=== PATIENT | female | born 2000 | race Hispanic/Latino ===

== ENCOUNTER 2021-08-02 12:35 | Outpatient (CLI) | payer MEDICAID ==
[2021-08-02 13:43] LABS: Hematocrit 37.9 % (30.3-42.9); Hemoglobin 13.5 gm/dl (10.1-14.3); Mean Corpuscular HGB Conc 36 % (30-34); Mean Corpuscular Volume 94 fl (79-97); Red Blood Count 4.06 M/mm3 (3.65-5.03)
[2021-08-02 13:44] LABS: Platelet Count 116 K/mm3 (140-440); Red Cell Distribution Width 13.9 % (13.2-15.2)
[2021-08-02 13:57] LABS: Bacteria,Urine 4+ /HPF (Negative); Bilirubin,Urine NEG (Negative); Blood,Urine LG (Negative); Color,Urine Yellow (Yellow); Mucus,Urine FEW /HPF; Protein,Urine <15 mg/dL mg/dL (Negative); Urobilinogen,Urine < 2.0 mg/dL (<2.0)
[2021-08-02 14:00] LABS: Alanine Aminotransferase 18 units/L (7-56)
[2021-08-02 14:17] VITALS: BP 126/74
[2021-08-02 23:09] LABS: Uric Acid 5.5 mg/dL (3.5-7.6)
== END 2021-08-02 14:45 | disposition home or self-care (01) ==
LOC: TRG 12:35 → APU 12:36 → TRG 14:45
PROVIDERS: ATTEND Obstetrics & Gynecology
DX: O13.3 Gestational [pregnancy-induced] hypertension without significant proteinuria, third trimester (principal); Z3A.40 40 weeks gestation of pregnancy
CPT/HCPCS: 36415; 59025; 81001; 82565; 83615; 84450; 84460; 84550; 85027; 87086

== ENCOUNTER 2021-08-06 20:33 | Inpatient (IN) | payer MEDICAID ==
[2021-08-06] MEDS ORDERED: NalbUPHINE 10 MG/1 ML INJ IV PRN (21:19)
[2021-08-06] MEDS ORDERED: MINERAL OIL 30 ML ORAL LIQD PO PRN (21:19)
[2021-08-06] MEDS ORDERED: BUTORPHANOL 2 MG/1 ML INJ IV PRN (21:19)
[2021-08-06] MEDS ORDERED: ACETAMINOPHEN 325 MG TAB PO PRN (21:19)
[2021-08-06] MEDS ORDERED: TERBUTALINE 1 MG/1 ML INJ SUB-Q PRN (21:19)
[2021-08-06 22:48] LABS: Mean Corpuscular HGB Conc 34 % (30-34); Mean Corpuscular Volume 94 fl (79-97); Platelet Count 104 K/mm3 (140-440); Red Blood Count 4.03 M/mm3 (3.65-5.03); Red Cell Distribution Width 14.4 % (13.2-15.2)
[2021-08-06] MEDS: LACTATED RINGERS 1,000 ML IV SCH (23:01)
[2021-08-06] MEDS: miSOPROStol 25 MCG TAB VG SCH (23:15)
[2021-08-07] MEDS: LACTATED RINGERS 1,000 ML IV SCH (00:30)
[2021-08-07] MEDS: miSOPROStol 25 MCG TAB VG SCH (03:18)
[2021-08-07] MEDS ORDERED: ONDANSETRON 4 MG/2 ML INJ ONE (07:06)
--- NOTE | 2021-08-07 09:24 | Anesthesia Consultation ---
Anesthesia Consult and Med Hx Date of service: 08/07/21 - Airway Anesthetic Teeth Evaluation: Poor ROM Head & Neck: Adequate Mental/Hyoid Distance: Adequate Mallampati Class: Class II Intubation Access Assessment: Probably Good - Pulmonary Exam CTA: Yes - Cardiac Exam Cardiac Exam: RRR - Pre-Operative Health Status ASA Pre-Surgery Classification: ASA2 Proposed Anesthetic Plan: Epidural - Pulmonary Hx Smoking: No Hx Asthma: Yes (as a baby) COPD: No Hx Pneumonia: No - Cardiovascular System Hx Hypertension: No - Central Nervous System Hx Neuromuscular Disorder: Yes (scoleosis) Hx Seizures: No Hx Psychiatric Problems: No - Endocrine Hx Renal Disease: No Hx End Stage Renal Disease: No Hx Hypothyroidism: No Hx Hyperthyroidism: No - Hematic Hx Anemia: No Hx Sickle Cell Disease: No - Other Systems Hx Alcohol Use: No Hx Obesity: Yes
[2021-08-07] MEDS ORDERED: fentaNYL-BUPIV 2 MCG/ML-0.125% 200 MCG/100 ML BAG EPIDURAL SCH (10:00)
[2021-08-07] MEDS ORDERED: NALOXONE 2 MG/2 ML INJ IV PRN (10:00)
[2021-08-07] MEDS ORDERED: ePHEDrine SULFATE 50 MG/1 ML INJ IV PRN (10:00)
--- NOTE | 2021-08-07 10:00 | Progress Note ---
Labor Epidural - Labor Epidural Start Time: 09:45 Stop Time: 09:49 Performed by:: HI DON Procedure: Patient is requesting epidural for labor pain. H&P and labs reviewed. Procedure explained, questions answered, consent obtained. Patient placed in sitting position with monitors applied. Timeout performed immediately before start of procedure. Prep/drape in usual sterile fashion. Skin localized 3 mL 1% lidocaine at L[3]-L[4] interspace. 17-gauge Touhy epidural needle advanced to RAHUL with saline at [8] cm x1 attempt. No blood/CSF noted via epidural needle. Epidural catheter advanced to [12] cm. Negative aspiration for blood and CSF via catheter, negative response to test dose 3 ml 1.5% lidocaine w/ Epi. Sterile dressing applied followed by tape reinforcement. Patient tolerated procedure well. No immediate complications noted.
[2021-08-07] MEDS ORDERED: FLU VACC QUAD 2021-22(6MOS UP)/PF 60 MCG/0.5 ML SYRINGE IM ONE (12:00)
--- NOTE | 2021-08-07 13:27 | History and Physical Report ---
History of Present Illness Date of examination: 08/06/21 Date of admission: 08/06/21 20:33 Chief complaint: I'm here for my induction History of present illness: Patient is 20-year-old 2 para 0 who presents for induction of labor secondary to postdates with an EDC of 08/02/2021 all of her labs have been negative and she is GBS negative as well. She transferred to just few months of care at 15 weeks gestation from women's health specialist. Her course has been otherwise uncomplicated Past History Past Medical History: no pertinent history Past Surgical History: no surgical history Family/Genetic History: none Social history: single - Obstetrical History Expected Date of Delivery: 08/02/21 Actual Gestation: 40 Week(s) 5 Day(s) : 3 Number of Living Children: 0 Medications and Allergies Allergies Allergy/AdvReac Type Severity Reaction Status Date / Time No Known Allergies Allergy Unverified 08/02/21 12:51 Home Medications Medication Instructions Recorded Confirmed Last Taken Type No Known Home Medications [No 08/06/21 08/06/21 Unknown History Reported Home Medications] Active Meds: Active Medications Acetaminophen (Acetaminophen 325 Mg Tab) 650 mg PO Q4H PRN PRN Reason: Pain, Mild (1-3) Butorphanol Tartrate (Butorphanol 2 Mg/1 Ml Inj) 1 mg IV Q2H PRN PRN Reason: Pain, Moderate(4-6) LABOR PAIN Last Admin: 08/07/21 06:48 Dose: 1 mg Ephedrine Sulfate (Ephedrine Sulfate 50 Mg/1 Ml Inj) 10 mg IV Q2M PRN PRN Reason: Hypotension Lactated Ringer's (Lactated Ringers) 1,000 mls @ 125 mls/hr IV DIRECT LUBA Last Admin: 08/07/21 00:30 Dose: 125 mls/hr Fentanyl/Bupivacaine/Sodium Chlor (Fentanyl-Bupiv 2 Mcg/Ml-0.125%) 200 mcg in 100 mls @ 12 mls/hr EPIDURAL TITR LUBA; Protocol Last Admin: 08/07/21 10:15 Dose: 12 mls/hr Mineral Oil (Mineral Oil 30 Ml Oral Liqd) 30 ml PO QHS PRN PRN Reason: Constipation Misoprostol (Misoprostol 25 Mcg Tab) 25 mcg VG Q4H LUBA Last Admin: 03/21/22 03:18 Dose: 25 mcg Nalbuphine HCl (Nalbuphine 10 Mg/1 Ml Inj) 10 mg IV Q2H PRN PRN Reason: Pain, Moderate (4-6) Naloxone HCl (Naloxone 2 Mg/2 Ml Inj) 0.2 mg IV Q5M PRN PRN Reason: Respiratory sedation Terbutaline Sulfate (Terbutaline 1 Mg/1 Ml Inj) 0.25 mg SUB-Q ONCE PRN PRN Reason: Hyperstimulation/Hypertonicity Review of Systems All systems: negative Genitourinary: pelvic pain - Vital Signs Vital signs: Vital Signs Pulse Pulse Ox 95 H 98 08/06/21 21:04 08/06/21 21:04 Temp Pulse Resp BP Pulse Ox 99.0 F 82 128/64 99 08/07/21 06:51 08/07/21 13:23 08/07/21 13:23 08/07/21 13:22 - Physical Exam Breasts: Positive: deferred Cardiovascular: Regular rate, Normal S1, Normal S2 Lungs: Positive: Clear to auscultation, Normal air movement Abdomen: Positive: normal appearance, soft, normal bowel sounds. Negative: distention, tenderness Genitourinary (Female): Positive: normal external genitalia, normal perenium Vulva: both: normal Vagina: Positive: normal moisture. Negative: discharge Cervix: Negative: lesion, discharge Uterus: Positive: normal size, normal contour Adnexa: both: normal Anus/Rectum: Positive: normal perianal skin, heme negative. Negative: rectal mass, hemorrhoids Extremities: Deep Tendon Reflex Grade: Normal +2 - Obstetrical FHR: auscultation normal Cervical Dilatation: 0.5 Cervical Effacement Percentage: 50 station: -3 Uterine Contraction Pattern: Absent Results Result Diagrams: 08/06/21 22:30 Abnormal lab results 08/06/21 Range/Units 22:30 Plt Count 104 L (140-440) K/mm3 All other labs normal. Assessment and Plan IUP at 40 weeks and 4 days here for postdates induction of labor. We will begin with Cytotec this evening. Patient may have epidural when ready. Anticipate .
--- NOTE | 2021-08-07 13:30 | Procedure Note ---
OB Delivery Note - Delivery Date of Delivery: 08/07/21 Surgeon: SULTANA ROSE - Vaginal Delivery presentation: vertex Delivery position: OA Intrapartum events: meconium (light) Delivery induction: misoprostol Delivery monitor: external FHT, external uterine Route of delivery: Indicators for instrumentation: nonreassuring FHR tracing Delivery placenta: spontaneous Delivery cord: 3 umbilical vessels Episiotomy: none Delivery laceration: 2nd degree Delivery repair: vicryl Anesthesia: epidural Delivery comments: Viable male delivered over intact perineum at 1300 p.m. had no evidence of nuchal cord. had spontaneous cry and was placed on maternal abdomen. Cord was clamped and cut when finished pulsating. Weight 8 pounds 2 ounces. Apgars 8/9. Placenta was delivered spontaneously and intact with three-vessel cord. Patient had a second-degree laceration that was repaired with 2-0 Vicryl. Excellent hemostasis. Patient tolerated procedure well. - Infant A at 1 minute: 8 at 5 minutes: 9 Gender: Male (8 pounds 2 ounces)
[2021-08-07] MEDS ORDERED: ONDANSETRON 4 MG/2 ML INJ IV PRN (16:28)
[2021-08-07] MEDS ORDERED: LANOLIN/ZINC/DIMETHICONE (LANSINOH) 7 GM TP PRN (16:28)
[2021-08-07] MEDS ORDERED: WITCH HAZEL/ GLYCERIN PAD TP PRN (16:28)
[2021-08-07] MEDS ORDERED: PROMETHAZINE 25 MG RECT SUPP PR PRN (16:28)
[2021-08-07] MEDS ORDERED: HYDROcodone/ACETAMINOPHEN 5-325 MG TAB PO PRN (16:28)
[2021-08-07] MEDS ORDERED: diphenhydrAMINE 25 MG CAP PO PRN (16:28)
[2021-08-07] MEDS ORDERED: PROMETHAZINE 25 MG TAB PO PRN (16:28)
[2021-08-07] MEDS: IBUPROFEN 800 MG TAB PO SCH ×2 (16:50→22:15)
[2021-08-07] MEDS ORDERED: MEASLES, MUMPS & RUBELLA 12,500 UNIT/0.5 ML VACCINE SUB-Q ONE (17:53)
--- NOTE | 2021-08-07 19:55 | Post Anesthesia Evaluation ---
- Post Anesthesia Evaluation Patient Participated: Yes Airway Patent: Yes Stable Respiratory Function: Yes Nausea/Vomiting: No Temp > 96.8F: Yes Pain Manageable: Yes Adequeate Hydration: Yes Anesthesia Complications: No Block Receding Appropriately: Yes Patient on Ventilator: No
[2021-08-07] MEDS: FERROUS SULFATE 325 MG TAB PO SCH (22:15)
[2021-08-08] MEDS: MAGNESIUM HYDROXIDE (MOM) ORAL LIQD UDC PO PRN ×2 (02:33→09:55)
[2021-08-08 05:19] LABS: Hematocrit 36.5 % (30.3-42.9); Hemoglobin 12.3 gm/dl (10.1-14.3)
[2021-08-08] MEDS: IBUPROFEN 800 MG TAB PO SCH ×2 (06:41→12:28)
[2021-08-08] MEDS: FERROUS SULFATE 325 MG TAB PO SCH (09:55)
[2021-08-08] MEDS ORDERED: PRENATAL VIT27-FE FUMARATE-FOLIC ACID VIT TAB PO SCH (10:00)
--- NOTE | 2021-08-08 12:48 | Discharge Summary ---
Providers - Providers Date of Admission: 08/06/21 20:33 Date of discharge: 08/08/21 Attending physician: SULTANA ROSE Primary care physician: SULTANA ROSE Hospitalization Reason for admission: induction of labor Delivery: Episiotomy: none Laceration: 2nd degree Other procedures: none complications: none Discharge diagnosis: IUP at term delivered baby: male Hospital course: unremarkable Condition at discharge: Good Disposition: 01 HOME / SELF CARE / HOMELESS Plan - Discharge Medications Prescriptions: Ibuprofen [Motrin] 800 mg PO Q8HR PRN #40 tablet PRN Reason: Pain, Mild (1-3) HYDROcodone/APAP 5-325 [[place] 5/325] 1 each PO Q6HR PRN #15 tablet PRN Reason: Pain - Provider Discharge Summary Activity: routine, no sex for 6 weeks, no heavy lifting 4 weeks, no strenuous exercise Diet: routine Instructions: routine Additional instructions: [] Smoking cessation referral if applicable(refer to patient education folder for contact #) [] Refer to [facility] Booklet Call your doctor immediately for: * Fever > 100.5 * Heavy vaginal bleeding ( >1 pad per hour) * Severe persistent headache * Shortness of breath * Reddened, hot, painful area to leg or breast * Drainage or odor from incision. * Keep incision clean and dry at all times and follow doctor's instructions regarding bathing/showering - Follow up plan Follow up: SULTANA ROSE MD [Primary Care Provider] - 6 Weeks
--- NOTE | 2021-08-08 12:50 | Progress Note ---
Assessment and Plan PPD 1 s/p . Doing well. Plan for discharge on today. Subjective - Subjective Date of service: 08/08/21 Interval history: Patient is 20-year-old 2 para 0 who presents for induction of labor secondary to postdates with an EDC of 08/02/2021 all of her labs have been negative and she is GBS negative as well. She transferred to just few months of care at 15 weeks gestation from women's health specialist. Her course has been otherwise uncomplicated Patient reports: appetite normal, voiding normally, pain well controlled, ambulating normally : doing well Objective - Vital Signs Latest vital signs: Vital Signs Temp Pulse Resp BP BP Pulse Ox Pulse Ox 08/08/21 08:00 98 08/08/21 07:40 98.3 F 80 20 134/84 98 08/08/21 06:41 18 08/08/21 00:10 97.8 F 87 18 119/61 97 08/07/21 23:15 18 08/07/21 22:15 18 08/07/21 20:32 98.1 F 99 H 20 137/87 98 08/07/21 20:30 99 08/07/21 16:21 99 08/07/21 16:19 98.4 F 88 18 126/79 99 08/07/21 15:38 96 H 141/78 08/07/21 15:37 98 H 99 08/07/21 15:32 96 H 100 08/07/21 15:27 104 H 98 08/07/21 15:23 88 137/91 08/07/21 15:22 91 H 99 08/07/21 15:17 107 H 99 08/07/21 15:15 96 H 88 08/07/21 15:12 91 H 99 08/07/21 15:08 94 H 131/78 08/07/21 15:07 90 100 08/07/21 15:02 103 H 98 08/07/21 15:01 79 88 08/07/21 14:57 92 H 99 08/07/21 14:53 82 132/74 08/07/21 14:52 89 98 08/07/21 14:47 86 100 08/07/21 14:45 88 94 08/07/21 14:42 107 H 100 08/07/21 14:38 83 127/61 08/07/21 14:37 84 99 08/07/21 14:32 66 99 08/07/21 14:27 85 100 08/07/21 14:23 77 127/60 08/07/21 14:22 65 100 08/07/21 14:17 75 99 08/07/21 14:12 94 H 94 08/07/21 14:08 96 H 137/82 08/07/21 14:07 98 H 99 08/07/21 14:02 94 H 99 08/07/21 13:57 82 99 08/07/21 13:53 86 142/78 08/07/21 13:52 94 H 100 08/07/21 13:47 79 100 08/07/21 13:42 83 99 08/07/21 13:38 76 138/69 08/07/21 13:37 85 98 08/07/21 13:32 90 97 08/07/21 13:27 86 97 08/07/21 13:23 82 128/64 08/07/21 13:22 84 99 08/07/21 13:17 91 H 99 08/07/21 13:12 97 H 97 08/07/21 13:08 83 132/68 08/07/21 13:07 84 100 08/07/21 13:02 109 H 100 08/07/21 12:57 104 H 100 08/07/21 12:53 72 139/73 08/07/21 12:52 146 H 100 Intake and Output 08/07/21 08/08/21 08/08/21 22:59 06:59 14:59 Intake Total 360 240 240 Output Total 900 Balance -540 240 240 Intake: Oral 120 240 240 Intake, Free Water 240 Output: Urine 900 Void 900 Other: Total, Intake Amount 120 120 240 Total, Output Amount 500 # Voids Void 1 05 20 - Exam Breasts: Present: deferred Cardiovascular: Present: Regular rate, Normal S1, Normal S2 Lungs: Present: Clear to auscultation, Normal air movement Abdomen: Present: normal appearance, soft Uterus: Present: normal, firm Extremities: Present: normal
[2021-08-08 13:28] VITALS: BP 120/70
== END 2021-08-08 15:30 | disposition home or self-care (01) | DRG 775 ==
LOC: LD 20:33 → OB 08-07 16:12
PROVIDERS: ADMIT Obstetrics & Gynecology; ATTEND Obstetrics & Gynecology
PROC: 10E0XZZ Delivery of Products of Conception, External Approach (ICD-10-PCS; principal; 2021-08-07)
PROC: 0KQM0ZZ Repair Perineum Muscle, Open Approach (ICD-10-PCS; 2021-08-07)
PROC: 3E0R3BZ Introduction of Anesthetic Agent into Spinal Canal, Percutaneous Approach (ICD-10-PCS; 2021-08-07)
PROC: 00HU33Z Insertion of Infusion Device into Spinal Canal, Percutaneous Approach (ICD-10-PCS; 2021-08-07)
PROC: 3E0P7VZ Introduction of Hormone into Female Reproductive, Via Natural or Artificial Opening (ICD-10-PCS; 2021-08-07)
PROC: 3E0234Z Introduction of Serum, Toxoid and Vaccine into Muscle, Percutaneous Approach (ICD-10-PCS; 2021-08-07)
DX: O77.0 Labor and delivery complicated by meconium in amniotic fluid (principal); O48.0 Post-term pregnancy; Z3A.40 40 weeks gestation of pregnancy; Z37.0 Single live birth; Z20.822 Contact with and (suspected) exposure to COVID-19; Z23 Encounter for immunization; O70.1 Second degree perineal laceration during delivery
CPT/HCPCS: 36415; 85014; 85018; 85027; 86850; 86900; 86901; 99211; G0378; J3490; G0463; J0595; J7120; U0003